=== PATIENT | female | born 1995 | race Caucasian/White ===

== ENCOUNTER 2016-11-11 21:28 | Emergency (ER) | payer MEDICAID ==
[2016-11-11] MEDS ORDERED: NS 0.9% 1000 ML* 1,000 ML IV ONE (21:33)
--- NOTE | 2016-11-11 22:01 | ED ---
Mulugeta Olivas Benjamin, scribed for Napoleon Ghosh MD on 11/11/16 at 2144 . Substance Abuse/Use - HPI Summary HPI Summary: 21yo female BIBA for heroin overdose tonight. Pt was given 2 doses of Narcan by EMS. Pt is alert and oriented and has hx of IV drug use in the past. Denies any other drug use today and reports TOWNSEND but no other symptoms. Pt is not sure about her HIV and Hep C status. Pt is ; last sonogram was 3 weeks ago, which pt was told over 12 weeks then, but pt is not sure exactly how far along she is. Pt doesn't know the exact amount she injected tonight. - History Of Current Complaint Chief Complaint: EDSubstanceAbuse Stated Complaint: OVERDOSE Time Seen by Provider: 11/11/16 21:33 Hx Obtained From: Patient ?: Yes Onset/Duration of Drug/ETOH Abuse: Hours Ingestion History: Type/Name Of Drug - heroin Overdose Characteristics: IV Timing Of Abuse: Binge Use Severity Initially: Moderate Severity Currently: None Aggravating Factor(s): Nothing Alleviating Factor(s): Medication - narcan Associated Signs And Symptoms: Other: - TOWNSEND - Allergies/Home Medications Allergies/Adverse Reactions: Allergies Allergy/AdvReac Type Severity Reaction Status Date / Time No Known Allergies Allergy Verified 11/11/16 21:35 PMH/Surg Hx/FS Hx/Imm Hx Psychiatric History: Reports: Hx Substance Abuse - IV drug use: heroin - Immunization History Date of Tetanus Vaccine: PT STATES UP TO DATE Date of Influenza Vaccine: NONE Infectious Disease History: No Infectious Disease History: Denies: Traveled Outside the [place] in Last 30 Days - Family History Known Family History: Positive: Unknown - pt declines to answer - Social History Occupation: Unemployed Lives: With Family Alcohol Use: Occasionally Substance Use Type: Reports: Heroin, Marijuana Smoking Status (MU): Never Smoked Tobacco Review of Systems Constitutional: Negative Eyes: Negative ENT: Negative Cardiovascular: Negative Respiratory: Negative Gastrointestinal: Negative Genitourinary: Negative Musculoskeletal: Negative Skin: Negative Neurological: Other - heroin overdose Positive: Headache Psychological: Normal All Other Systems Reviewed And Are Negative: Yes Physical Exam Triage Information Reviewed: Yes Vital Signs On Initial Exam: Initial Vitals Temp Pulse Resp BP 98.2 F 100 17 113/62 11/11/16 21:31 11/11/16 21:31 11/11/16 21:31 11/11/16 21:31 Vital Signs Reviewed: Yes Appearance: Positive: Well-Appearing, No Pain Distress Skin: Positive: Warm Head/Face: Positive: Normal Head/Face Inspection Eyes: Positive: FATIMAH ENT: Positive: Hearing grossly normal Neck: Positive: Supple Respiratory/Lung Sounds: Positive: Breath Sounds Present Cardiovascular: Positive: RRR Abdomen Description: Positive: Nontender - gravid, Soft Bowel Sounds: Positive: Present Musculoskeletal: Positive: Strength/ROM Intact Neurological: Positive: Alert, Oriented to Person Place, Time Psychiatric: Positive: Affect/Mood Appropriate Diagnostics - Vital Signs Vital Signs Temp Pulse Resp BP Pulse Ox 11/11/16 21:33 98.2 F 93 16 113/62 96 11/11/16 21:31 98.2 F 100 17 113/62 - Laboratory Result Diagrams: 11/11/16 21:58 11/11/16 21:58 Lab Statement: Any lab studies that have been ordered have been reviewed, and results considered in the medical decision making process. - EKG 2248. Cardiac Rate: NL - 76bpm EKG Rhythm: Sinus Rhythm ST Segment: Normal Ectopy: None Re-Evaluation - Re-Evaluation First Eval Comment: bedside us reveals 19wk gestation, fhr 154 Course/Dx - Diagnoses Provider Diagnoses: Heroin overdose, Discharge - Discharge Plan Condition: Stable Disposition: HOME Patient Education Materials: Polysubstance Abuse (ED) Referrals: No Primary Care Phys,NOPCP [Primary Care Provider] - The documentation as recorded by the Mulugeta lay Benjamin accurately reflects the service I personally performed and the decisions made by me, Napoleon Ghosh MD.
[2016-11-11 22:16] LABS: Hematocrit 32 % (35-47); Hemoglobin 10.9 g/dl (12.0-16.0); Mean Corpuscular HGB Conc 34 g/dl (31-36); Mean Corpuscular Hemoglobin 31 pg (27-31); Mean Corpuscular Volume 91 fL (80-97); Mean Platelet Volume 7 um3 (7.4-10.4); Red Blood Count 3.52 10^6/ul (4.0-5.4); Red Cell Distribution Width 14 % (10.5-15); White Blood Count 8.7 10^3/ul (3.5-10.8)
[2016-11-11 22:30] LABS: ALT 36 U/L (7-52); AST 21 U/L (13-39); Acetaminophen < 15 mcg/mL; Albumin 3.5 g/dL (3.2-5.2); Alcohol < 10 mg/dL (<10); Alkaline Phosphatase 57 U/L (34-104); Anion Gap 9 mmol/L (2-11); BUN/Creatinine Ratio 14.3 (8-20); Blood Urea Nitrogen 6 mg/dL (6-24); CO2 Carbon Dioxide 22 mmol/L (22-32); Calcium 8.7 mg/dL (8.6-10.3); Chloride 101 mmol/L (101-111); Creatine Kinase 45 U/L (10-223); EGFR African American 242.6 (>60); EGFR Non-African American 188.7 (>60); Glucose 94 mg/dL (70-100); Salicylate < 2.50 mg/dL (<30); Sodium 132 mmol/L (133-145); Total Protein 6.5 g/dL (6.4-8.9)
[2016-11-11] MEDS ORDERED: Potassium Chlor TAB* 20 MEQ TAB.ER PO ONE (22:52)
[2016-11-11 23:17] LABS: Urine Bacteria Absent (Absent); Urine Bilirubin Negative (Negative); Urine Glucose Negative (Negative); Urine Nitrite Negative (Negative)
[2016-11-11] MEDS ORDERED: Acetaminophen TAB* 325 MG PO ONE (23:52)
[2016-11-12 00:39] VITALS: BP 102/60
== END 2016-11-12 00:40 | disposition home or self-care (01) ==
LOC: ED 21:28
DX: T40.1X1A Poisoning by heroin, accidental (unintentional), initial encounter (principal); O26.90 Pregnancy related conditions, unspecified, unspecified trimester; R51 Headache; Y92.9 Unspecified place or not applicable; Z3A.00 Weeks of gestation of pregnancy not specified
CPT/HCPCS: 36415; 80053; 80320; 80329; 81003; 81015; 82550; 83605; 84702; 85025; 93005; 99283; A9270-GY; G0480

== ENCOUNTER 2017-02-26 21:15 | Emergency (ER) | payer MEDICAID ==
--- NOTE | 2017-02-27 02:57 | ED ---
Rudy Olivas Nilda, scribed for Rhys Waldron MD on 02/26/17 at 2155 . Substance Abuse/Use - HPI Summary HPI Summary: This patient is a 21 year old F BIBA presenting [facility] accompanied by mother s /p heroin overdose one hour ago. Per mother, patient detoxed and went to rehab but relapsed 2 weeks ago. Today patient was sitting in a bathroom stall when she used. She became unresponsive and hit her head on the wall, though she did not fall. The patient rates the pain 6/10 in severity. Symptoms aggravated by recent stress. Patient reports dizziness. She is 34 weeks . - History Of Current Complaint Chief Complaint: EDRespiratoryDistress Stated Complaint: OVERDOSE Time Seen by Provider: 02/26/17 21:40 Hx Obtained From: Patient ?: Yes - 34 weeks Onset/Duration of Drug/ETOH Abuse: Hours Ingestion History: Type/Name Of Drug - heroin Overdose Characteristics: IV Timing Of Abuse: Daily Severity Currently: Moderate Character: Stuporous Aggravating Factor(s): Recent Stress Associated Signs And Symptoms: Other: - LOC, dizziness Related Hx: Prior Drug Abuse Counseling/Admission - Allergies/Home Medications Allergies/Adverse Reactions: Allergies Allergy/AdvReac Type Severity Reaction Status Date / Time No Known Allergies Allergy Verified 11/11/16 21:35 PMH/Surg Hx/FS Hx/Imm Hx Sensory History: Denies: Hx Legally Blind EENT History: Denies: Hx Deafness Psychiatric History: Reports: Hx Substance Abuse - IV drug use: heroin - Immunization History Date of Tetanus Vaccine: PT STATES UP TO DATE Date of Influenza Vaccine: NONE Infectious Disease History: No Infectious Disease History: Denies: Traveled Outside the [place] in Last 30 Days - Family History Known Family History: Positive: Other - drug addiction (heroin) - Social History Alcohol Use: None Substance Use Type: Reports: Heroin, Marijuana Smoking Status (MU): Heavy Every Day Tobacco Smoker Review of Systems Positive: Other - heroin OD Positive: other - 34 weeks Neurological: Other - LOC, dizziness; negative fall All Other Systems Reviewed And Are Negative: Yes Physical Exam - Summary Physical Exam Summary: The patient is well-nourished in no acute distress and in no acute pain. The skin is warm and dry and skin color reflects adequate perfusion. HEENT: The head is normocephalic and atraumatic. The pupils are equal and reactive. The conjunctivae are clear and without drainage. Nares are patent and without drainage. Mouth reveals moist mucous membranes and the throat is without erythema and exudate. The external ears are intact. The ear canals are patent and without drainage. The tympanic membranes are intact. Neck is supple with full range of motion and non-tender. There are no carotid bruits. There is no neck vein distension. Respiratory: Chest is non-tender. Lungs are clear to auscultation and breath sounds are symmetrical and equal. Cardiovascular: Heart is regular rate and rhythm. There is no murmur or rub auscultated. There is no peripheral edema and pulses are symmetrical and equal. Abdomen: Abdomen gravid 3 cm below xiphoid. There are normal bowel sounds heard in all four quadrants and there is no organomegaly palpated. Musculoskeletal: There is no back pain noted. Extremities are non-tender with full range of motion. There is good capillary refill. There is no peripheral edema or calf tenderness elicited.Track edwards on both upper extremities. Neurological: Patient is alert and oriented to person, place and time. The patient has symmetrical motor strength in all four extremities. Cranial nerves are grossly intact. Deep tendon reflexes are symmetrical and equal in all four extremities. Psychiatric: The patient has an appropriate affect and does not exhibit any anxiety or depression. Triage Information Reviewed: Yes Vital Signs On Initial Exam: Initial Vitals Temp Pulse Resp BP Pulse Ox 97.8 F 97 19 123/67 97 02/26/17 21:25 02/26/17 21:25 02/26/17 21:25 02/26/17 21:25 02/26/17 21:25 Vital Signs Reviewed: Yes - [place] Coma Scale Coma Scale Total: 14 Diagnostics - Vital Signs Vital Signs Temp Pulse Resp BP Pulse Ox 02/26/17 21:27 97 15 97 02/26/17 21:26 123/67 02/26/17 21:25 97.8 F 97 19 123/67 97 - Laboratory Lab Statement: Any lab studies that have been ordered have been reviewed, and results considered in the medical decision making process. - Additional Comments Diagnostic Additional Comments: US, per radiologist, reveals: There is a single live intrauterine gestation in cephalic presentation. heart rate 143 beats per minute. Approximate age of 34 weeks, 5 days by composite ultrasound measurements. Estimated weight 2241 g. Amniotic fluid index 13.36 cm is between the 5th and 50th percentiles for measured gestational age. Fundal placenta without abruption or previa. The cervix is closed and measures 5.3 cm in length. ED Physician has reviewed the report and agrees. Re-Evaluation - Re-Evaluation First Eval Re-Evaluation Time: 00:17 Comment: ED physician discussed plan with patient. Course/Dx - Course Course Of Treatment: Pt received narcan prior to arrival. AAO here. No injury or perceived contractions. monitoring/toco here. No contractions. Decreased variability of HR. D/W OB -- he agrees pt will need further monitoring. Was to admit, but pt actually will be discharged for outpt care at [facility]. - Diagnoses Provider Diagnoses: Opiate dependence, Heroin overdose, Third trimester - Physician Notifications Discussed Care Of Patient With: Ava Lacy - DENTAL APPLIANCE MECHANIC Time Discussed With Above Provider: 23:57 Instructed by Provider To: Other - admit to OB Discharge - Discharge Plan Condition: Good Disposition: TRANSFER TO OB ([facility]) Referrals: No Primary Care Phys,NOPCP [Primary Care Provider] - Additional Instructions: FAITH Shafer The documentation as recorded by the Rudy lay Nilda accurately reflects the service I personally performed and the decisions made by , Rhys Waldron MD.
[2017-02-27 02:59] VITALS: BP 123/70
--- NOTE | 2017-02-27 07:53 | RAD ---
INDICATION: 44 week . Heroin overdose COMPARISON: None TECHNIQUE: A limited examination is performed to evaluate for viability. This study does not include a anatomic survey. FINDINGS: There is a single intrauterine gestation in cephalic presentation with heart rate of 143 bpm. There is movement. The amniotic fluid index is normal measuring 13.4. The cervix is long and closed measuring 5.3 cm. The estimated gestational age based on biparietal diameter, head circumference, abdominal circumference, and femur length corresponds to 36 weeks 0 days, 36 weeks 2 days, 33 weeks 2 days, 33 weeks 0 days resulting a average gestational age of 34 weeks 5 days. The weight is 4 lbs. 15 oz. IMPRESSION: VIABLE INTRAUTERINE GESTATION AT 34 WEEKS 5 DAYS.
== END 2017-02-27 02:59 | disposition other institution (70) ==
LOC: ED 21:15
DX: O9A.213 Injury, poisoning and certain other consequences of external causes complicating pregnancy, third trimester (principal); F11.20 Opioid dependence, uncomplicated; O99.323 Drug use complicating pregnancy, third trimester; Z3A.34 34 weeks gestation of pregnancy; O99.333 Smoking (tobacco) complicating pregnancy, third trimester; Z72.0 Tobacco use
CPT/HCPCS: 76815; 99282

== ENCOUNTER 2017-06-21 04:24 | Emergency (ER) | payer MEDICAID ==
[2017-06-21] MEDS ORDERED: NS 0.9% 1000 ML* 1,000 ML IV ONE (05:04)
[2017-06-21 06:25] LABS: ABS Basophils 0 10^3/ul (0-0.2); ABS Eosinophils 0 10^3/ul (0-0.6); ABS Lymphocytes 1.3 10^3/ul (1.0-4.8); ABS Monocytes 0.9 10^3/ul (0-0.8); ABS Neutrophils 9.3 10^3/ul (1.5-7.7); ABS Nucleated RBC 0 10^3/ul; Eosinophil % 0.4 % (0-6); Hematocrit 35 % (35-47); Hemoglobin 11.5 g/dl (12.0-16.0); Lymphocyte % 11.4 % (25-47); Mean Corpuscular HGB Conc 33 g/dl (31-36); Mean Corpuscular Hemoglobin 29 pg (27-31); Mean Corpuscular Volume 88 fL (80-97); Mean Platelet Volume 8 um3 (7.4-10.4); Nucleated Red Blood Cells % 0; Platelet Count 255 10^3/ul (150-450); Red Blood Count 3.95 10^6/ul (4.0-5.4); Red Cell Distribution Width 13 % (10.5-15); White Blood Count 11.6 10^3/ul (3.5-10.8)
--- NOTE | 2017-06-21 06:48 | ED ---
Ashwin Olivas Gabriel, scribed for Justyna Velásquez MD on 06/21/17 at 0505 . Substance Abuse/Use - HPI Summary HPI Summary: This patient is a 21 year old F BIBA to [facility] after she was found unresponsive in the bathroom by her mother. He mother contacted EMS and they administered nasal narcan which awoke the patient. She admits to injecting cocaine. Pt denies SI and HI. She reports having a TOWNSEND. - History Of Current Complaint Chief Complaint: EDOverdose Stated Complaint: OVERDOSE Time Seen by Provider: 06/21/17 04:34 Hx Obtained From: Patient Ingestion History: Type/Name Of Drug - cocaine Overdose Characteristics: IV Timing Of Abuse: Intermittent Severity Initially: Severe Severity Currently: Mild Character: Stuporous Associated Signs And Symptoms: Other: - TOWNSEND - Allergies/Home Medications Allergies/Adverse Reactions: Allergies Allergy/AdvReac Type Severity Reaction Status Date / Time No Known Allergies Allergy Verified 06/21/17 04:28 PMH/Surg Hx/FS Hx/Imm Hx Opthamlomology History: Denies: Hx Cataracts, Hx Contacts or Glasses Psychiatric History: Reports: Hx Substance Abuse - IV drug use: heroin - Immunization History Date of Tetanus Vaccine: PT STATES UP TO DATE Date of Influenza Vaccine: NONE Infectious Disease History: No Infectious Disease History: Denies: Traveled Outside the [place] in Last 30 Days - Family History Known Family History: Positive: Unknown - pt declines to answer - Social History Alcohol Use: None Substance Use Type: Reports: Cocaine, Heroin, Marijuana Smoking Status (MU): Heavy Every Day Tobacco Smoker Review of Systems Negative: Fever Positive: Headache All Other Systems Reviewed And Are Negative: Yes Physical Exam - Summary Physical Exam Summary: VITAL SIGNS: Reviewed. GENERAL: Patient is a well-developed and nourished female who is lying comfortable in the stretcher. Patient is not in any acute respiratory distress. HEAD AND FACE: No signs of trauma. No ecchymosis, hematomas or skull depressions. No sinus tenderness. EYES: PERRLA, EOMI x 2, No injected conjunctiva, no nystagmus. EARS: Hearing grossly intact. Ear canals and tympanic membranes are within normal limits. MOUTH: Oropharynx within normal limits. NECK: Supple, trachea is midline, no adenopathy, no JVD, no carotid bruit, no c- spine tenderness, neck with full ROM. CHEST: Symmetric, no tenderness at palpation LUNGS: Clear to auscultation bilaterally. No wheezing or crackles. CVS: Regular rate and rhythm, S1 and S2 present, no murmurs or gallops appreciated. ABDOMEN: Soft, non-tender. No signs of distention. No rebound no guarding, and no masses palpated. Bowel sounds are normal. EXTREMITIES: FROM in all major joints, no edema, no cyanosis or clubbing. NEURO: Alert and oriented x 3. No acute neurological deficits. Speech is normal and follows commands. SKIN: Dry and warm Triage Information Reviewed: Yes Vital Signs On Initial Exam: Initial Vitals Temp Pulse Resp BP Pulse Ox 97.8 F 99 16 105/66 100 06/21/17 04:25 06/21/17 04:25 06/21/17 04:25 06/21/17 04:25 06/21/17 04:25 Vital Signs Reviewed: Yes Diagnostics - Vital Signs Vital Signs Temp Pulse Resp BP Pulse Ox 06/21/17 04:25 97.8 F 99 16 105/66 100 - Laboratory Lab Results: Lab Results 06/21/17 06/21/17 Range/Units 05:51 05:51 WBC 11.6 H (3.5-10.8) 10^3/ul RBC 3.95 L (4.0-5.4) 10^6/ul Hgb 11.5 L (12.0-16.0) g/dl Hct 35 (35-47) % MCV 88 (80-97) fL MCH 29 (27-31) pg MCHC 33 (31-36) g/dl RDW 13 (10.5-15) % Plt Count 255 (150-450) 10^3/ul MPV 8 (7.4-10.4) um3 Neut % (Auto) 80.2 (38-83) % Lymph % (Auto) 11.4 L (25-47) % Irion % (Auto) 8.0 H (0-7) % Eos % (Auto) 0.4 (0-6) % Baso % (Auto) 0 (0-2) % Absolute Neuts (auto) 9.3 H (1.5-7.7) 10^3/ul Absolute Lymphs (auto) 1.3 (1.0-4.8) 10^3/ul Absolute Monos (auto) 0.9 H (0-0.8) 10^3/ul Absolute Eos (auto) 0 (0-0.6) 10^3/ul Absolute Basos (auto) 0 (0-0.2) 10^3/ul Absolute Nucleated RBC 0 10^3/ul Nucleated RBC % 0 Sodium 135 (133-145) mmol/L Potassium 3.7 (3.5-5.0) mmol/L Chloride 100 L (101-111) mmol/L Carbon Dioxide 26 (22-32) mmol/L Anion Gap 9 (2-11) mmol/L BUN 14 (6-24) mg/dL Creatinine 0.64 (0.51-0.95) mg/dL Est GFR ( Amer) 149.2 (>60) Est GFR (Non-Af Amer) 116.0 (>60) BUN/Creatinine Ratio 21.9 H (8-20) Glucose 86 (70-100) mg/dL Calcium 9.6 (8.6-10.3) mg/dL Total Bilirubin 0.40 (0.2-1.0) mg/dL AST 22 (13-39) U/L ALT 20 (7-52) U/L Alkaline Phosphatase 68 (34-104) U/L Total Protein 7.4 (6.4-8.9) g/dL Albumin 4.3 (3.2-5.2) g/dL Globulin 3.1 (2-4) g/dL Albumin/Globulin Ratio 1.4 (1-3) TSH Pending Beta HCG, Quant < 0.60 mIU/mL Salicylates Pending Acetaminophen Pending Serum Alcohol Pending Result Diagrams: 06/21/17 05:51 06/21/17 05:51 Lab Statement: Any lab studies that have been ordered have been reviewed, and results considered in the medical decision making process. - EKG 0423 Cardiac Rate: Tachycardia EKG Rhythm: Sinus Rhythm - at 100 bpm EKG Interpretation: J point elevation Course/Dx - Course Assessment/Plan: This patient is a 21 year old F BIBA to [facility] after she was found unresponsive in the bathroom by her mother. He mother contacted Ems and they administered nasal narcan which awoke the patient. She admits to injecting cocaine. Pt denies SI and HI. She reports having a TOWNSEND. Pt will be signed out to Dr. Roberto awaiting detox. - Diagnoses Provider Diagnoses: Overdose Discharge - Discharge Plan Condition: Fair Disposition: OTHER Discharge Disposition Comment: Signed out to Dr Roberto Referrals: No Primary Care Phys,NOPCP [Primary Care Provider] - The documentation as recorded by the Ashwin lay Gabriel accurately reflects the service I personally performed and the decisions made by me, Justyna Velásquez MD.
[2017-06-21 08:04] LABS: Urine Appearance Cloudy; Urine Blood Negative (Negative); Urine Color Yellow; Urine Ketones Trace (Negative); Urine Protein 2+(100 mg/dL) (Negative); Urine Specific Gravity 1.021 (1.010-1.030); Urine Urobilinogen Negative (Negative)
[2017-06-21 11:59] VITALS: BP 120/73
--- NOTE | 2017-06-22 00:32 | ED ---
I, Karina Baptiste, scribed for Patti Roberto MD on 06/21/17 at 0702 . Progress - Progress Note Progress Note: This pt is a sign out from Dr. Velásquez at shift change at 07:00 pending heroin metabolism. The pt is asleep upon arrival of ED physician at 07:17. Bilateral feet had multiple injection sites about the medial ankle and dorsum of the feet. The pt states her roommates name is Rajesh Diaz. The pt states her roommate is unaware that she does heroin because she "does not shoot all the time". The ED physician will consult social security specialist. Course/Dx - Course Course Of Treatment: Per Areli Steiner the plan is that the pt will be discharged to [facility] ([facility] [place]). She will receive addiction evaluation and will determine her care plan overlooked by Dr. Booker Zaidi. Condition: stable, Disposition: discharged. - Diagnoses Provider Diagnoses: Overdose, Substance abuse The documentation as recorded by the elodiaibeEmile Stephanie accurately reflects the service I personally performed and the decisions made by me, Patti Roberto MD.
== END 2017-06-21 11:58 | disposition home or self-care (01) ==
LOC: ED 04:24
DX: T40.5X1A Poisoning by cocaine, accidental (unintentional), initial encounter (principal); Y92.9 Unspecified place or not applicable; F17.210 Nicotine dependence, cigarettes, uncomplicated; R51 Headache
CPT/HCPCS: 36415; 80053; 80307; 80320; 80329; 81003; 81015; 84443; 84702; 85025; 87086; 93005; 99284; G0480

== ENCOUNTER 2018-07-22 15:39 | Emergency (ER) | payer MEDICAID, OTHER ==
[2018-07-22 16:30] VITALS: BP 124/63
[2018-07-22] MEDS ORDERED: cefTRIAXone VIAL(*) 250 MG VIAL IM ONE (17:46)
[2018-07-22] MEDS ORDERED: Azithromycin TAB* 250 MG PO ONE (17:46)
--- NOTE | 2018-07-22 17:46 | UC ---
Complaint Female HPI - HPI Summary HPI Summary: 22 year old female recently returned from rehab presents after her sexual partner informed her he had recently been told he had tricomonas. Patient states has noted increased pain with sexual intercourse over past 2-3 days but thought this was due to increased intercourse. Denies vaginal discharge. Currently on menses. Was tested for STIs and recent vaginal exam ~ 1 month ago when in rehab, was negative. only one partner x several months - History Of Current Complaint Chief Complaint: UCSTDScreening Stated Complaint: PERSONAL Time Seen by Provider: 07/22/18 16:36 Hx Obtained From: Patient Hx Last Menstrual Period: 07/22/18 ?: No - menses Onset/Duration: Sudden Onset, Lasting Days Timing: Intermittent - during sexual incounters Severity Initially: Moderate Severity Currently: Moderate Pain Intensity: 5 Pain Scale Used: 0-10 Numeric - Allergies/Home Medications Allergies/Adverse Reactions: Allergies Allergy/AdvReac Type Severity Reaction Status Date / Time No Known Allergies Allergy Verified 07/22/18 16:20 Home Medications: Home Medications Gabapentin 300 mg PO BID PRN 07/22/18 [History Confirmed 07/22/18] PMH/Surg Hx/FS Hx/Imm Hx Previously Healthy: Yes - h/o chlamydia age 16 - Surgical History Surgical History: Yes Surgery Procedure, Year, and Place: T&A. - Family History Known Family History: Positive: Unknown - pt declines to answer - Social History Alcohol Use: None Substance Use Type: Other Substance Use Comment - Amount & Last Used: Pt. clean from drugs x 6 mos. Smoking Status (MU): Heavy Every Day Tobacco Smoker Type: Cigarettes Amount Used/How Often: 1 pack/day Have You Smoked in the Last Year: Yes Household Exposure Type: Cigarettes Review of Systems All Other Systems Reviewed And Are Negative: Yes Constitutional: Positive: Negative Gastrointestinal: Positive: Abdominal Pain - with itnercourse Genitourinary: Positive: Vaginal/Penile Tenderness. Negative: Vaginal/Penile Burning, Vaginal/Penile Itching, Vaginal/Penile Discharge, Vaginal/Penile Pain Motor: Negative: Negative Is Patient Immunocompromised?: No Physical Exam Triage Information Reviewed: Yes Appearance: Well-Appearing, No Pain Distress, Well-Nourished Vital Signs: Initial Vital Signs Temp 99 F 07/22/18 16:21 Pulse 83 07/22/18 16:21 Resp 22 07/22/18 16:21 BP 124/63 07/22/18 16:21 Pulse Ox 96 07/22/18 16:21 Vital Signs Reviewed: Yes Eyes: Negative: Conjunctiva Clear Abdominal Exam: Normal Abdomen Description: Positive: Nontender, No Organomegaly, Soft, Bruit. Negative: CVA Tenderness (R), CVA Tenderness (L) Pelvic Exam: Positive: Other - patient declined vaginal examination due to recent exam and being on menses Neurological Exam: Normal Psychological Exam: Normal Skin Exam: Normal Complaint Female Dx - Course Course Of Treatment: Patient declined vaginal examination. Treated with vernon, chlam, trich. diflucan given for potential yeast as patient has history of this. - Differential Dx/Diagnosis Differential Diagnosis/HQI/PQRI: Pelvic Inflammatory Disease, Urinary Tract Infection Provider Diagnosis: Trichomonal infection Discharge - Sign-Out/Discharge Documenting (check all that apply): Patient Departure All imaging exams completed and their final reports reviewed: No Studies - Discharge Plan Condition: Good Disposition: HOME Prescriptions: Fluconazole 150 MG TAB* [Diflucan 150 MG TAB*] 150 mg PO ONCE #1 tablet Patient Education Materials: Trichomoniasis (ED), Safe Sex (ED), Sexually Transmitted Diseases (ED) Referrals: No Primary Care Phys,NOPCP [Primary Care Provider] - [facility] [Outside] Additional Instructions: - Antibiotics given for chlamydia, gonorrhea, and trichomonas infections - increase fluid intake over next 24 hours - Diflucan as needed if yeast infection develops - No sexual contact for 7 days after antibiotics - Do not have sexual intercourse with infected partners - Follow up with [facility] OPERATOR - If on oral control pills, use back up method until next pack. FOr Primary provider, call [facility]: Our hours of operation are Sunday to Sunday 8:00a to 4:30p You may reach us by calling . - Billing Disposition and Condition Condition: GOOD Disposition: Home
[2018-07-22] MEDS ORDERED: Lidocaine 2% W/EPI 1:100,000* 20 ML MDV ONE (17:47)
[2018-07-22] MEDS ORDERED: Lidocaine 1% MPF* 2 ML VIAL ONE (17:52)
== END 2018-07-22 18:08 | disposition home or self-care (01) ==
LOC: UCCORT 15:39
DX: A59.9 Trichomoniasis, unspecified (principal); F17.210 Nicotine dependence, cigarettes, uncomplicated
CPT/HCPCS: 81003; 84702; 96372; 99212; A9270-GY; G0463; J0696

== ENCOUNTER 2018-08-24 15:22 | Emergency (ER) | payer OTHER ==
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
[2018-08-24 16:11] LABS: ABS Eosinophils 0.1 10^3/ul (0-0.6); ABS Lymphocytes 1.4 10^3/ul (1.0-4.8); ABS Monocytes 0.6 10^3/ul (0-0.8); ABS Neutrophils 5.3 10^3/ul (1.5-7.7); Eosinophil % 1.4 %; Hematocrit 36 % (35-47); Hemoglobin 12.3 g/dL (12.0-16.0); Lymphocyte % 18.6 %; Mean Corpuscular HGB Conc 34 g/dL (31-36); Mean Corpuscular Hemoglobin 31 pg (27-31); Mean Corpuscular Volume 91 fL (80-97); Mean Platelet Volume 7.9 fL (7.4-10.4); Platelet Count 207 10^3/uL (150-450); Red Blood Count 3.97 10^6 /uL (3.70-4.87); Red Cell Distribution Width 13 % (10.5-15); White Blood Count 7.3 10^3/uL (3.5-10.8)
[2018-08-24] MEDS ORDERED: Ondansetron ODT TAB* 4 MG SL PRN (16:18)
[2018-08-24] MEDS ORDERED: Ondansetron INJ* 2 MG/ML VIAL IV ONE (16:19)
[2018-08-24] MEDS ORDERED: NS 0.9% 1000 ML** 1,000 ML IV ONE (16:19)
[2018-08-24 16:29] LABS: ALT 114 U/L (7-52); AST 66 U/L (13-39); Albumin/Globulin Ratio 1.5 (1-3); Alkaline Phosphatase 53 U/L (34-104); Anion Gap 7 mmol/L (2-11); BUN/Creatinine Ratio 17.2 (8-20); Blood Urea Nitrogen 10 mg/dL (6-24); CO2 Carbon Dioxide 28 mmol/L (22-32); Calcium 9.1 mg/dL (8.6-10.3); Chloride 105 mmol/L (101-111); EGFR African American 155.9 (>60); EGFR Non-African American 128.8 (>60); Globulin 2.7 g/dL (2-4); Glucose 115 mg/dL (70-100); Potassium 3.3 mmol/L (3.5-5.0); Sodium 140 mmol/L (135-145); Total Protein 6.7 g/dL (6.4-8.9)
[2018-08-24 16:53] LABS: Alcohol < 10 mg/dL (<10); Salicylate < 2.50 mg/dL (<30)
[2018-08-24 16:56] LABS: Acetaminophen < 15 mcg/mL
[2018-08-24] MEDS ORDERED: Potassium Chlor TAB* 20 MEQ TAB.ER PO ONE (17:10)
[2018-08-24] MEDS ORDERED: Acetaminophen TAB* 325 MG PO ONE (18:10)
[2018-08-24 19:05] VITALS: BP 102/68
== END 2018-08-24 19:02 | disposition home or self-care (01) ==
LOC: ED 15:22
DX: T40.1X1A Poisoning by heroin, accidental (unintentional), initial encounter (principal); Y92.9 Unspecified place or not applicable; F17.210 Nicotine dependence, cigarettes, uncomplicated; F41.9 Anxiety disorder, unspecified; F32.9 Major depressive disorder, single episode, unspecified; F11.10 Opioid abuse, uncomplicated
CPT/HCPCS: 36415; 80053; 80320; 80329; 83605; 85025; 93005; 99283; A9270-GY; G0480; J2405

== ENCOUNTER 2018-11-13 11:32 | Emergency (ER) | payer OTHER ==
[2018-11-13 15:03] LABS: ABS Monocytes 0.4 10^3/ul (0-0.8); ABS Neutrophils 4.2 10^3/ul (1.5-7.7); Eosinophil % 0.5 %; Hematocrit 37 % (35-47); Hemoglobin 12.5 g/dL (12.0-16.0); Mean Corpuscular HGB Conc 34 g/dL (31-36); Mean Corpuscular Hemoglobin 30 pg (27-31); Mean Corpuscular Volume 90 fL (80-97); Mean Platelet Volume 8.1 fL (7.4-10.4); Platelet Count 225 10^3/uL (150-450); Red Blood Count 4.11 10^6 /uL (3.70-4.87); Red Cell Distribution Width 12 % (10-15); White Blood Count 6.8 10^3/uL (3.5-10.8)
[2018-11-13] MEDS ORDERED: NS 0.9% 1000 ML** 1,000 ML IV ONE (15:05)
--- NOTE | 2018-11-13 15:10 | ED ---
Abdominal Pain/Female - HPI Summary HPI Summary: Pt is a 23 y/o F presenting to the ED with a chief complaint of lower abd pain initially onset this morning around 0800. She states she went to [facility] yesterday and they told her she is , but she is unsure how far along she is. The cramps lasted about 4 hours, and she did not experience this pain with her first , so it worried her. She denies vaginal bleeding, discharge, vomiting, diarrhea, or fever. She has hx of Hep C. - History of Current Complaint Chief Complaint: EDOBProblems Stated Complaint: - SEVERE CRAMPS SINCE THIS MORNING PER PT Time Seen by Provider: 11/13/18 14:44 Hx Obtained From: Patient Hx Last Menstrual Period: 07/22/18 ?: Yes - potentially Onset/Duration: Sudden Onset, Lasting Hours, Resolved Timing: Hours Severity Initially: Moderate Severity Currently: None Pain Intensity: 0 Pain Scale Used: 0-10 Numeric Location: Suprapubic Radiates: No Character: Cramping Aggravating Factor(s): Nothing Alleviating Factor(s): Spontaneous Resolution Associated Signs and Symptoms: Negative: Fever, Vaginal Bleeding, Vaginal Discharge, Vomiting, Diarrhea Allergies/Adverse Reactions: Allergies Allergy/AdvReac Type Severity Reaction Status Date / Time No Known Allergies Allergy Verified 11/13/18 11:37 PMH/Surg Hx/FS Hx/Imm Hx Previously Healthy: Yes Endocrine/Hematology History: Denies: Hx Diabetes Cardiovascular History: Denies: Hx Hypertension Sensory History: Denies: Hx Cataracts, Hx Contacts or Glasses Opthamlomology History: Denies: Hx Cataracts, Hx Contacts or Glasses Psychiatric History: Reports: Hx Anxiety, Hx Depression, Hx Substance Abuse - IV drug use: heroin - Surgical History Surgery Procedure, Year, and Place: T&A. - Immunization History Date of Tetanus Vaccine: PT STATES UP TO DATE Date of Influenza Vaccine: NONE Infectious Disease History: No Infectious Disease History: Reports: Hx Hepatitis - Hep C Denies: Traveled Outside the [place] in Last 30 Days - Family History Known Family History: Positive: Other - Heroine use - Social History Alcohol Use: None Hx Substance Use: Yes Substance Use Type: Reports: Heroin Substance Use Comment - Amount & Last Used: Pt. clean from drugs x 6 mos. Hx Tobacco Use: Yes Smoking Status (MU): Heavy Every Day Tobacco Smoker Type: Cigarettes Amount Used/How Often: 1 pack/day Have You Smoked in the Last Year: Yes Review of Systems Negative: Fever Positive: Abdominal Pain. Negative: Vomiting, Diarrhea Negative: discharge, other - vaginal bleeding All Other Systems Reviewed And Are Negative: Yes Physical Exam - Summary Physical Exam Summary: Constitutional: Well-developed, Well-nourished, Alert. (-) Distressed Skin: Warm, Dry HENT: Normocephalic; Atraumatic Eyes: Conjunctiva normal Neck: Musculoskeletal ROM normal neck. (-) JVD, (-) Stridor Cardio: Rhythm regular, rate normal, Heart sounds normal; Intact distal pulses; Radial pulses are 2+ and symmetric. (-) Murmur Pulmonary/Chest wall: Effort normal. (-) Respiratory distress, (-) Wheezes, (-) Rales Abd: Soft, (-) tenderness, (-) Distension, (-) Guarding, (-) Rebound Musculoskeletal: (-) Edema Lymph: (-) Cervical adenopathy Neuro: Alert, Oriented x3 Psych: Mood and affect Normal Triage Information Reviewed: Yes Vital Signs On Initial Exam: Initial Vitals Temp Pulse Resp BP Pulse Ox 98.5 F 79 14 127/80 97 11/13/18 11:35 11/13/18 11:35 11/13/18 11:35 11/13/18 11:35 11/13/18 11:35 Vital Signs Reviewed: Yes Diagnostics - Vital Signs Vital Signs Temp Pulse Resp BP Pulse Ox 11/13/18 13:34 97.7 F 79 16 132/72 97 11/13/18 11:35 98.5 F 79 14 127/80 97 - Laboratory Lab Results: Lab Results 11/13/18 Range/Units 14:50 WBC 6.8 (3.5-10.8) 10^3/uL RBC 4.11 (3.70-4.87) 10^6 /uL Hgb 12.5 (12.0-16.0) g/dL Hct 37 (35-47) % MCV 90 (80-97) fL MCH 30 (27-31) pg MCHC 34 (31-36) g/dL RDW 12 (10-15) % Plt Count 225 (150-450) 10^3/uL MPV 8.1 (7.4-10.4) fL Neut % (Auto) 62.6 % Lymph % (Auto) 30.0 % [place] % (Auto) 6.6 % Eos % (Auto) 0.5 % Baso % (Auto) 0.3 % Absolute Neuts (auto) 4.2 (1.5-7.7) 10^3/ul Absolute Lymphs (auto) 2.0 (1.0-4.8) 10^3/ul Absolute Monos (auto) 0.4 (0-0.8) 10^3/ul Absolute Eos (auto) 0.0 (0-0.6) 10^3/ul Absolute Basos (auto) 0.0 (0-0.2) 10^3/ul Absolute Nucleated RBC 0.0 10^3/ul Nucleated RBC % 0.0 Result Diagrams: 11/13/18 14:50 11/13/18 14:50 Lab Statement: Any lab studies that have been ordered have been reviewed, and results considered in the medical decision making process. - Ultrasound Transvaginal US Ultrasound Interpretation Completed By: Radiologist Summary of Ultrasound Findings: 1. NO INTRAUTERINE GESTATIONAL SAC IS IDENTIFIED. 2. A RIGHT ADNEXAL CYST, MEASURING UP TO 3.3 CM, APPEARS TO BE SEPARATE FROM THE OVARY. THIS MAY BE A PARAOVARIAN CYST; HOWEVER, IN THIS CONTEXT, CLOSE CLINICAL FOLLOW-UP WITH. QUANTITATIVE BETA-HCG AND REPEAT PELVIC ULTRASOUND IS RECOMMENDED TO EXCLUDE THE. POSSIBILITY OF AN ECTOPIC . ED physician has reviewed this report. Re-Evaluation - Re-Evaluation First Eval Re-Evaluation Time: 16:07 Comment: UA with bacteria will treat w keflex BID x3 days, give one dose here. Second Eval Change: Improved Comment: Patient states she's doing better, no additional episodes of abdominal pain. Ultrasound with possible right adnexal cyst, cannot rule out ectopic. Patient advised to return to the ED in 2 days for repeat labs, and repeat ultrasound. Patient in agreement to return for any worsening pain, symptoms or if she is concerned Abdominal Pain Fem Course/Dx - Course Course Of Treatment: 23-year-old female who is approximately 8 weeks by last period who presents with an episode of crampy abdominal pain that has resolved. DDx includes ectopic, UTI, dehydration, torsion, TOA, gastritis, PID. Exam relatively unremarkable today, no rigidity or suggestions of acute surgical abd. Pt with negative Keyes's on exam. Will provide fluids for dehydration lipase to evaluate for pancreatitis. Will obtain cbc to assess for underlying infection. Serum preg and will check TVUS if positive. Less likely ovarian torsion given location of pain and no focal TTP on exam. Pt denies pelvic pain and vaginal discharge, also with no fever, so less likely PID. Will obtain UA to assess for UTI. Will continue to monitor. - Diagnoses Provider Diagnoses: UTI (urinary tract infection), Abdominal pain Discharge - Sign-Out/Discharge Documenting (check all that apply): Patient Departure Patient Received Moderate/Deep Sedation with Procedure: No - Discharge Plan Condition: Stable Disposition: HOME Prescriptions: Cephalexin CAP* [Keflex CAP*] 500 mg PO BID 3 Days #6 cap Patient Education Materials: Abdominal Pain (ED), Urinary Tract Infection in (ED) Referrals: Lizbeth Klein MD [Medical Doctor] - Additional Instructions: Please follow up with your [facility]. You need a repeat transvaginal ultrasound in 2-3 days as well as repeat beta hCG to rule out an ectopic Return to the emergency department with vaginal bleeding, cramping, abdominal pain or any new or worsening symptoms. - Billing Disposition and Condition Condition: STABLE Disposition: Home - Attestation Statements Document Initiated by Tyler: Yes Documenting Scribe: Karin Zamorano Provider For Whom Tyler is Documenting (Include Credential): Caleb Martínez MD. Scribe Attestation: I, Karin Zamorano, scribed for Caleb Martínez MD. on 11/13/18 at 1959. Scribe Documentation Reviewed: Yes Provider Attestation: The documentation as recorded by the elodiaibKarin churchill accurately reflects the service I personally performed and the decisions made by me, Caleb Martínez MD. Status of Scribe Document: Viewed Consult Consult: [id number] - I spoke with Dr. Klein of [facility] about the pt's present condition. They stated that she can follow up with [facility] in 2-3 days.
[2018-11-13 15:31] LABS: Albumin/Globulin Ratio 1.4 (1-3); BUN/Creatinine Ratio 27.8 (8-20); Calcium 9.2 mg/dL (8.6-10.3); EGFR African American 167.8 (>60); EGFR Non-African American 138.7 (>60); Globulin 2.9 g/dL (2-4); Potassium 3.9 mmol/L (3.5-5.0); Total Bilirubin 0.7 mg/dL (0.2-1.0); Total Protein 6.9 g/dL (6.4-8.9)
[2018-11-13 15:35] LABS: HCG Pregnancy 684.62 mIU/mL
[2018-11-13 15:41] LABS: Urine Appearance Cloudy; Urine Bacteria 2+ (Absent); Urine Bilirubin Negative (Negative); Urine Blood Negative (Negative); Urine Color Amber; Urine Glucose Negative (Negative); Urine Ketones Trace (Negative); Urine Nitrite Negative (Negative); Urine Protein Negative (Negative); Urine Red Blood Cell 1+(3-5/hpf) (Absent); Urine Specific Gravity 1.029 (1.010-1.030); Urine Squamous Epithelial Cell Present (Absent); Urine Urobilinogen Negative (Negative); Urine White Blood Cell 1+(6-10/hpf) (Absent)
[2018-11-13] MEDS ORDERED: Cephalexin CAP* 500 MG PO ONE (16:05)
[2018-11-13 19:02] VITALS: BP 122/66
== END 2018-11-13 19:01 | disposition home or self-care (01) ==
LOC: ED 11:32
DX: N39.0 Urinary tract infection, site not specified (principal); F17.210 Nicotine dependence, cigarettes, uncomplicated
CPT/HCPCS: 36415; 76817; 80053; 81003; 81015; 84702; 85025; 86850; 86900; 86901; 87086; 96360; 99282; A9270-GY